=== PATIENT | male | born 1990 | race Hispanic/Latino ===

== ENCOUNTER 2019-09-09 09:52 | Emergency (ER) | payer SELFPAY ==
[2019-09-09] MEDS ORDERED: LEVALBUTEROL 1.25 MG/3 ML NEB ONE (10:40)
--- NOTE | 2019-09-09 10:57 | RAD REPORT ---
EXAM DESCRIPTION: RAD - Chest Pa And Lat (2 Views) - 09/09/2019 10:48 am CLINICAL HISTORY: fever, cough Chest pain. COMPARISON: No comparisons FINDINGS: Interstitial markings are prominent bilaterally probably representing viral pneumonitis or bronchitis. No focal consolidation typical of pneumonia seen. The heart is normal in size. No displa margy fractures.
--- NOTE | 2019-09-09 12:01 | ER ---
Nurse's Notes [facility] Name: Vishal Lopez Age: 28 yrs Sex: Male : 1990 Arrival Date: 09/09/2019 Time: 09:54 Bed 24 Private MD: Diagnosis: Influenza due to certain identified influenza viruses Presentation: 09/09 10:03 Presenting complaint: Patient states: cough and congestion that began 2 days ago. aa5 Transition of care: patient was not received from another setting of care. Onset of symptoms was September 2019. Risk Assessment: Do you want to hurt yourself or someone else? Patient reports no desire to harm self or others. Initial Sepsis Screen: Does the patient meet any 2 criteria? No. Patient's initial sepsis screen is negative. Does the patient have a suspected source of infection? No. Patient's initial sepsis screen is negative. Care prior to arrival: None. 10:03 Acuity: LYNDON 4 aa5 10:03 Method Of Arrival: Ambulatory aa5 Historical: - Allergies: 10:03 No Known Allergies; aa5 - PMHx: 10:03 None; aa5 - PSHx: 10:03 None; aa5 - Immunization history:: Flu vaccine is not up to date. - Social history:: Smoking status: Patient uses tobacco products, smokes one-half pack cigarettes per day. - Ebola Screening: : No symptoms or risks identified at this time. Screenin:05 Abuse screen: Denies threats or abuse. Nutritional screening: No deficits noted. aa5 Tuberculosis screening: No symptoms or risk factors identified. Fall Risk None identified. Assessment: 10:05 General: Appears uncomfortable, Behavior is calm, cooperative. Pain: Denies pain. aa5 Neuro: Level of Consciousness is awake, alert, obeys commands, Oriented to person, place, time, situation. Cardiovascular: Heart tones S1 S2 present Rhythm is regular. Respiratory: Reports cough that is productive, Airway is patent Respiratory effort is even, unlabored, Respiratory pattern is regular, symmetrical, Breath sounds are clear bilaterally. GI: No signs and/or symptoms were reported involving the gastrointestinal system. : No signs and/or symptoms were reported regarding the genitourinary system. EENT: Reports nasal congestion nasal discharge that is watery. Derm: Skin is pink, warm \T\ dry. Musculoskeletal: Range of motion: intact in all extremities. 10:38 Reassessment: To bedside to administer neb tx and collect flu/strep swabs, pt in aa5 radiology. . 11:05 Reassessment: Patient appears in no apparent distress at this time. No changes from aj1 previously documented assessment. Patient and/or family updated on plan of care and expected duration. Pain level reassessed. Patient is alert, oriented x 3, equal unlabored respirations, skin warm/dry/pink. 12:15 Reassessment: Patient appears in no apparent distress at this time. No changes from aj1 previously documented assessment. Patient and/or family updated on plan of care and expected duration. Pain level reassessed. Patient is alert, oriented x 3, equal unlabored respirations, skin warm/dry/pink. Vital Signs: 10:03 BP 137 / 66; Pulse 88; Resp 18 S; Temp 98.1(O); Pulse Ox 99% on R/A; Weight 133.81 kg aa (R); Height 5 ft. 10 in. (177.80 cm) (R); Pain 0/10; 11:22 BP 141 / 77; Pulse 82; Resp 18; Pulse Ox 100% on R/A; aj1 12:15 BP 118 / 65; Pulse 88; Resp 18; Pulse Ox 100% on R/A; aj1 10:03 Body Mass Index 42.33 (133.81 kg, 177.80 cm) [facility] ED Course: 09:54 Patient arrived in ED. as 10:02 Arm band placed on. aa5 10:02 Patient has correct armband on for positive identification. Bed in low position. Call [facility] light in reach. Side rails up X 1. 10:04 Triage completed. aa5 10:04 Phylicia Dong, RN is Primary Nurse. aa5 10:04 Rios Abad PA is PHCP. [facility] 10:04 Samm Morocho MD is Attending Physician. [facility] 10:30 No provider procedures requiring assistance completed. aa5 10:48 Chest Pa And Lat (2 Views) XRAY In Process Unspecified. EDMS 11:45 Throat Culture Sent. jp3 12:17 Patient did not have IV access during this emergency room visit. aj1 Administered Medications: 11:02 Drug: Xopenex (3) 1.25 mg Route: Inhalation; aj1 12:18 Follow up: Response: No adverse reaction aj1 Outcome: 11:59 Discharge ordered by . parker 12:17 Discharged to home ambulatory. aj1 12:17 Condition: good 12:17 Condition: good 12:17 Discharge instructions given to patient, Instructed on discharge instructions, follow up and referral plans. medication usage, Demonstrated understanding of instructions, follow-up care, medications, Prescriptions given X 2. 12:18 Patient left the ED. aj1 Signatures: Dispatcher [employer] Diana Azul, RN RN aj1 Rios Abad PA PA jmm Martinez, Amelia as Calderon, Audri, RN RN aa5 Bill Small jp3
--- NOTE | 2019-09-09 12:02 | EDPHYS ---
Physician Documentation [facility] Name: Vishal Lopez Age: 28 yrs Sex: Male : 1990 Arrival Date: 09/09/2019 Time: 09:54 Bed 24 Private MD: ED Physician Samm Morocho HPI: 09/09 10:28 This 28 yrs old Male presents to ER via Ambulatory with complaints of Cough. jmm 10:28 The patient or guardian reports cough. Onset: The symptoms/episode began/occurred jmm gradually, 2 day(s) ago. Modifying factors: The symptoms are alleviated by nothing, the symptoms are aggravated by nothing. Associated signs and symptoms: Pertinent positives: fever, sore throat, Pertinent negatives:. This is a 28 year old male with no chronic medical conditions that presents to the ED with complaints of cough, sore throat, chest congestion beginning two day ago. Patient states multiple coworkers have similar symptoms. . Historical: - Allergies: 10:03 No Known Allergies; aa5 - PMHx: 10:03 None; aa5 - PSHx: 10:03 None; aa5 - Immunization history:: Flu vaccine is not up to date. - Social history:: Smoking status: Patient uses tobacco products, smokes one-half pack cigarettes per day. - Ebola Screening: : No symptoms or risks identified at this time. ROS: 10:28 Cardiovascular: Negative for chest pain, palpitations, and edema. jmm 10:28 Constitutional: Positive for fever. 10:28 ENT: Positive for ear pain, sinus congestion, sore throat. 10:28 Respiratory: Positive for cough. 10:28 Abdomen/GI: Negative for vomiting. 10:28 All other systems are negative. Exam: 10:28 Constitutional: This is a well developed, well nourished patient who is awake, alert, jmm and in no acute distress. Head/Face: atraumatic. Eyes: EOMI, no conjunctival erythema appreciated ENT: Moist Mucus Membranes Neck: Trachea midline, Supple Chest/axilla: Normal chest wall appearance and motion. 10:28 Abdomen/GI: Non distended, soft Back: Normal ROM Skin: General appearance color normal MS/ Extremity: Moves all extremities, no obvious deformities appreciated, no edema noted to the lower extremities Neuro: Awake and alert, normal gait Psych: Behavior is normal, Mood is normal, Patient is cooperative and pleasant 10:28 Cardiovascular: Rate: normal, Rhythm: regular. 10:28 Respiratory: the patient does not display signs of respiratory distress, Respirations: normal, Breath sounds: are clear throughout. Vital Signs: 10:03 BP 137 / 66; Pulse 88; Resp 18 S; Temp 98.1(O); Pulse Ox 99% on R/A; Weight 133.81 kg aa5 (R); Height 5 ft. 10 in. (177.80 cm) (R); Pain 0/10; 11:22 BP 141 / 77; Pulse 82; Resp 18; Pulse Ox 100% on R/A; aj1 12:15 BP 118 / 65; Pulse 88; Resp 18; Pulse Ox 100% on R/A; aj1 10:03 Body Mass Index 42.33 (133.81 kg, 177.80 cm) aa5 MDM: 10:26 Patient medically screened. [facility] 11:58 Data reviewed: vital signs, nurses notes. Counseling: I had a detailed discussion with nessa the patient and/or guardian regarding: the historical points, exam findings, and any diagnostic results supporting the discharge/admit diagnosis, lab results, radiology results, the need for outpatient follow up, to return to the emergency department if symptoms worsen or persist or if there are any questions or concerns that arise at home. ED course: Patient is alert and non toxic in appearance in the ED. Patient advised to follow up with pcp and otherwise given strict return precautions. Patient understood and agrees with the plan of care. . 09/09 10:26 Order name: Flu; Complete Time: 11:22 [facility] 09/09 10:26 Order name: Strep; Complete Time: 11:22 [facility] 09/09 10:26 Order name: Chest Pa And Lat (2 Views) XRAY; Complete Time: 11:02 [facility] 09/09 11:27 Order name: Throat Culture EDMS Administered Medications: 11:02 Drug: Xopenex (3) 1.25 mg Route: Inhalation; aj1 12:18 Follow up: Response: No adverse reaction aj1 Disposition: 13:22 Co-signature as Attending Physician, Samm Morocho MD I agree with the assessment and kdr plan of care. Disposition: 09/09/19 11:59 Discharged to Home. Impression: Influenza due to certain identified influenza viruses. - Condition is Stable. - Discharge Instructions: Influenza, Adult. - Prescriptions for Albuterol Sulfate 90 mcg/actuation - inhale 1-2 puff by INHALATION route every 4-6 hours; 1 Inhaler. Tamiflu 75 mg Oral Capsule - take 1 tablet by ORAL route every 12 hours for 5 days; 10 tablet. - Medication Reconciliation Form, Thank You Letter, Antibiotic Education, Prescription Opioid Use form. - Follow up: Private Physician; When: 2 - 3 days; Reason: Recheck today's complaints, Continuance of care, Re-evaluation by your physician. Signatures: Dispatcher [employer] EDDiana Walls RN RN aj1 Samm Morocho MD MD kdr Rios Abad PA PA jmm Calderon, Audri RN RN aa5 Corrections: (The following items were deleted from the chart) 12:18 11:59 09/09/2019 11:59 Discharged to Home. Impression: Influenza due to certain aj1 identified influenza viruses. Condition is Stable. Forms are Medication Reconciliation Form, Thank You Letter, Antibiotic Education, Prescription Opioid Use. Follow up: Private Physician; When: 2 - 3 days; Reason: Recheck today's complaints, Continuance of care, Re-evaluation by your physician. parker
[2019-09-09 12:32] VITALS: TEMP 98.1
[2019-09-09 12:34] VITALS: O2SAT 100
[2019-09-09 12:35] VITALS: BP 118/65
== END 2019-09-09 12:18 | disposition home or self-care (01) ==
LOC: ER 09:52
DX: J10.1 Influenza due to other identified influenza virus with other respiratory manifestations (principal); F17.210 Nicotine dependence, cigarettes, uncomplicated
CPT/HCPCS: 71046; 87070; 87081; 87804; 99284